=== PATIENT | male | born 1960 | race Caucasian/White ===

== ENCOUNTER 2020-01-30 12:30 | Emergency (ER) | payer BC ==
[~2020-01-30] VITALS: Ht 185.4 cm; Wt 115.7 kg
[2020-01-30 12:34] VITALS: BP 187/133
== END 2020-01-30 13:27 | disposition home or self-care (01) ==
LOC: ER 12:30
DX: M25.462 Effusion, left knee (principal); Z87.891 Personal history of nicotine dependence